=== PATIENT | male | born 1975 | race Two or more races ===

== ENCOUNTER 2017-12-10 11:02 | Outpatient (CLI) | payer OTHER ==
[2017-12-10 12:12] LABS: BASOPHILS # (AUTO) 0.1 K/uL (0.0-8.0); BASOPHILS % (AUTO) 0.7 % (0.0-2.0); EOSINOPHILS # (AUTO) 0.2 K/uL (0.0-0.7); HEMATOCRIT 47.6 % (36.7-47.1); HEMOGLOBIN 16.2 g/dL (12.5-16.3); LYMPHOCYTES # (AUTO) 2.6 K/uL (20.0-40.0); LYMPHOCYTES % (AUTO) 28.5 % (20.5-51.5); MEAN CORPUSCULAR HEMOGLOBIN 28.2 uug (23.8-33.4); MEAN CORPUSCULAR HGB CONC 34 g/dL (32.5-36.3); MEAN CORPUSCULAR VOLUME 83.1 fL (73.0-96.2); MONOCYTES # (AUTO) 0.6 K/uL (2.0-10.0); MONOCYTES % (AUTO) 6.8 % (0.0-11.0); NEUTROPHILS # (AUTO) 5.7 K/uL (1.8-8.9); PLATELET COUNT (AUTO) 194 K/uL (152-348); RED BLOOD CELL COUNT(AUTO) 5.73 MIL/uL (4.06-5.63); WHITE BLOOD COUNT (AUTO) 9.1 K/uL (3.6-10.2)
[2017-12-10 12:15] LABS: *BILIRUBIN,URIN NEGATIVE (NEGATIVE); *BLOOD, URINE NEGATIVE (NEGATIVE); *CLARITY,URINE CLEAR (CLEAR); *COLOR,URINE YELLOW (YELLOW); *KETONES,URINE NEGATIVE (NEGATIVE); *PROTEIN,URINE NEGATIVE (NEGATIVE); *UROBILINOGEN,URINE 0.2 E.U./dl (NORMAL); LEUKOCYTE ESTERASE ,URINE NEGATIVE (NEGATIVE); NITRITE, URINE NEGATIVE (NEGATIVE); UGLUCOSE NEGATIVE (NEGATIVE)
[2017-12-10 12:26] LABS: CREATININE 0.9 mg/dL (0.6-1.3); POTASSIUM 4.1 mmol/L (3.5-5.1)
[2017-12-10 12:28] LABS: BACTERIA,URINE FEW /HPF (NONE SEEN); RBC,URINE 0-3 /HPF (0-3); SQUAMOUS EPITHELIAL CELL,UR FEW /HPF (NONE SEEN); WBC,URINE 0-3 /HPF (0-3)
[2017-12-10 12:32] LABS: BILIRUBIN,TOTAL 0.4 mg/dL (0.2-1.0); TOTAL PROTEIN, SERUM 7.8 g/dL (6.4-8.2)
== END 2017-12-10 23:59 | disposition home or self-care (01) ==
LOC: DS 11:02
PROVIDERS: ATTEND Internal Medicine
DX: Z01.818 Encounter for other preprocedural examination (principal)
CPT/HCPCS: 36415; 85025; 85730; A4663

== ENCOUNTER 2017-12-12 08:53 | Day surgery (SDC) | payer OTHER ==
[2017-12-12] MEDS ORDERED: DEXAMETHASONE SOD PHOSPHATE 4 MG INJ IV ONE (08:54)
[2017-12-12] MEDS ORDERED: IV LACTATED RINGERS SOLUTION 1,000 ML BAG IV ONE (08:54)
[2017-12-12] MEDS ORDERED: CEFAZOLIN 1 G VIAL MC ONE (08:54)
[2017-12-12] MEDS ORDERED: PROPOFOL 200 MG/20 ML BOTTLE IV ONE (08:54)
[2017-12-12] MEDS ORDERED: SEVOFLURANE 250 ML BOTTLE IH ONE (08:54)
[2017-12-12] MEDS ORDERED: LIDOCAINE HCL 2% 20 ML VIAL MC ONE (08:54)
[2017-12-12] MEDS ORDERED: ONDANSETRON 4 MG/2 ML VIAL IV ONE (08:54)
[2017-12-12] MEDS ORDERED: BUPIVACAINE 0.25% 30 ML VIAL ONE (10:09)
[2017-12-12] MEDS ORDERED: MORPHINE SULFATE PF 10 MG/10 ML AMPUL IV ONE (10:09)
[2017-12-12] MEDS ORDERED: MIDAZOLAM HCL 2 MG/2 ML VIAL ONE (10:59)
[2017-12-12] MEDS ORDERED: HYDROMORPHONE 2 MG/1 ML DISP.SYRIN ONE (10:59)
[2017-12-12] MEDS ORDERED: FENTANYL CITRATE 100 MCG/2 ML AMPUL ONE (12:46)
[2017-12-12] MEDS ORDERED: HYDROCODONE/APAP 5-325MG TABLET ONE (13:26)
== END 2017-12-12 14:10 | disposition home or self-care (01) ==
LOC: DS 08:53
PROVIDERS: ATTEND Orthopaedic Surgery
DX: M65.861 Other synovitis and tenosynovitis, right lower leg (principal); E66.9 Obesity, unspecified; G89.29 Other chronic pain
CPT/HCPCS: J0690; J1100; J1170; J2250; J2274; J2405; J3010; J3490; J7120